=== PATIENT | female | born 1985 | race Caucasian/White ===

== ENCOUNTER 2019-02-18 12:40 | Emergency (ER) | payer OTHER ==
--- NOTE | 2019-02-18 13:04 | ER Document Report ---
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 Montaño continued into today. Has taken ASA earlier today TRAVEL OUTSIDE OF THE [place] IN LAST 30 DAYS: No - Related Data Allergies/Adverse Reactions: cefaclor [From Ceclor] Allergy (Verified 02/18/19 12:42) Physical Exam - Vital signs Vitals: Temp Pulse Resp BP Pulse Ox 98.2 F 51 L 18 108/67 98 02/18/19 12:58 02/18/19 12:58 02/18/19 12:58 02/18/19 12:58 02/18/19 12:58 Course - Vital Signs Vital signs: Temp Pulse Resp BP Pulse Ox 98.2 F 51 L 18 108/67 98 02/18/19 12:58 02/18/19 12:58 02/18/19 12:58 02/18/19 12:58 02/18/19 12:58
[2019-02-18 13:58] LABS: ABSOLUTE BASOPHILS # (AUTO) 0.1 10^3/uL (0.0-0.2); ABSOLUTE EOSINOPHILS # (AUTO) 0.3 10^3/uL (0.0-0.6); ABSOLUTE LYMPHOCYTES (AUTO) 1.3 10^3/uL (0.5-4.7); ABSOLUTE MONOCYTES (AUTO) 0.3 10^3/uL (0.1-1.4); BASOPHILS % (AUTO) 0.9 % (0-2); HEMATOCRIT 43.5 % (36.0-47.0); LYMPHOCYTES % (AUTO) 19.1 % (13-45); MEAN CORPUSCULAR HEMOGLOBIN 30.5 pg (27.0-33.4); MEAN CORPUSCULAR HGB CONC 34.5 g/dL (32.0-36.0); MEAN CORPUSCULAR VOLUME 89 fl (80-97); MONOCYTES % (AUTO) 4.1 % (3-13); PLATELET COUNT 202 10^3/uL (150-450); RED BLOOD COUNT 4.91 10^6/uL (3.72-5.28); RED CELL DISTRIBUTION WIDTH 13.3 % (11.5-14.0); SEGMENTED NEUTROPHILS % (AUTO) 71.9 % (42-78); TOTAL CELLS COUNTED % (AUTO) 100 %
--- NOTE | 2019-02-18 14:20 | RADIOLOGY REPORT (SQ) ---
EXAM DESCRIPTION: CHEST 2 VIEWS COMPLETED DATE/TIME: 02/18/2019 2:04 pm REASON FOR STUDY: cp COMPARISON: None. NUMBER OF VIEWS: One view. TECHNIQUE: Single frontal radiographic view of the chest acquired. LIMITATIONS: None. FINDINGS: LUNGS AND PLEURA: No opacities, masses or pneumothorax. No pleural effusion. MEDIASTINUM AND HILAR STRUCTURES: Clips right hilum. HEART AND VASCULAR STRUCTURES: Heart enlarged without failure. Normal vasculature. BONES: No acute findings. HARDWARE: Sternotomy. Prosthetic heart valves. OTHER: No other significant finding. IMPRESSION: Postoperative changes congenital heart disease. No acute findings. TECHNICAL DOCUMENTATION: JOB ID: [id number] [employer]- All Rights Reserved Reading location - IP/workstation name: [email or web address]
[2019-02-18 14:24] LABS: ALANINE AMINOTRANSFERASE 21 U/L (9-52); ALKALINE PHOSPHATASE 72 U/L (38-126); ANION GAP 12 (5-19); ASPARTATE AMINO TRANSFERASE 28 U/L (14-36); BILIRUBIN,DIRECT 0.3 mg/dL (0.0-0.4); BILIRUBIN,TOTAL 0.9 mg/dL (0.2-1.3); BLOOD UREA NITROGEN 11 mg/dL (7-20); CALCIUM 10.3 mg/dL (8.4-10.2); CARBON DIOXIDE 24 mmol/L (22-30); CHLORIDE 105 mmol/L (98-107); CREATINE KINASE 74 U/L (30-135); GLUCOSE 92 mg/dL (75-110); POTASSIUM 3.9 mmol/L (3.6-5.0); TOTAL PROTEIN 8.7 g/dL (6.3-8.2)
[2019-02-18 14:27] LABS: CREATINE KINASE MB 0.44 ng/mL (<4.55)
[2019-02-18 14:28] LABS: TROPONIN I < 0.012 ng/mL
--- NOTE | 2019-02-18 15:31 | ER Document Report ---
ED Cardiac - General Chief Complaint: Chest Pain Stated Complaint: CHEST PAIN Time Seen by Provider: 02/18/19 13:02 Primary Care Provider: CRISPIN ELLIOTT MD [ACTIVE STAFF] - Follow up as needed Mode of Arrival: Ambulatory Notes: 33-year-old female patient was here for evaluation of chest pain with intermittent palpitations. Patient states that she has had Ebstein anomaly as a child with open heart surgery. Had tricuspid and pulmonary valve replacement in 2016. 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 Denies any current chest pain but did have some chest pain at the time of the palpitations. Followed by Dr. Shyam Becerra at [facility]. TRAVEL OUTSIDE OF THE [place] 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 Montaño continued into today. 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 Renal/ Medical History: Denies: Hx Peritoneal Dialysis Review of Systems - Review of Systems Notes: Constitutional: denies: Chills, Diaphoresis, Fever, Malaise, Weakness EENT: denies: Eye discharge, Blurred vision, Tearing, Double vision, Nose congestion, Nose discharge, Throat swelling, Mouth pain Cardiovascular: denies: +Palpitations, +Heart racing, Orthopnea, Dyspnea, +Chest pain Respiratory: denies: Cough, Hurts to breathe, Wheezing, Shortness of breath Gastrointestinal: denies: Abdominal pain, Diarrhea, Nausea, Vomiting, Black stools, bright red blood in stool Genitourinary: denies: Burning, Dysuria, Discharge, Frequency, Flank pain, Hematuria Musculoskeletal: denies: Joint pain, Joint swelling, Muscle pain, Muscle stiffness, back pain Hematologic/Lymphatic: denies: Anemia, Easy bleeding, Easy bruising, Blood clots Neurological/Psychological: denies: Confusion, Dementia, Depression, Loss of consciousness Skin: No lesions, no masses, no skin breakdown, no abscesses Physical Exam - Vital signs Vitals: Temp Pulse Resp BP Pulse Ox 98.2 F 51 L 18 108/67 98 02/18/19 12:58 02/18/19 12:58 02/18/19 12:58 02/18/19 12:58 02/18/19 12:58 Interpretation: Normal - General General appearance: Appears well, Alert - HEENT Head: Normocephalic, Atraumatic Eyes: Normal Pupils: PERRL - Respiratory Respiratory status: No respiratory distress Chest status: Nontender Breath sounds: Normal Chest palpation: Normal - Cardiovascular Rhythm: Regular Heart sounds: Normal auscultation Murmur: No Notes: History of valvular repair sounds more like a click - Abdominal Inspection: Normal Distension: No distension Bowel sounds: Normal Tenderness: Nontender Organomegaly: No organomegaly - Back Back: Normal, Nontender - Extremities General upper extremity: Normal inspection, Nontender, Normal color, Normal ROM, Normal temperature General lower extremity: Normal inspection, Nontender, Normal color, Normal ROM, Normal temperature, Normal weight bearing. No: Irasema's sign - Neurological Neuro grossly intact: Yes Cognition: Normal Orientation: AAOx4 Michael Coma Scale Eye Opening: Spontaneous [place] Coma Scale Verbal: Oriented [place] Coma Scale Motor: Obeys Commands [place] Coma Scale Total: 15 Speech: Normal Motor strength normal: LUE, RUE, LLE, RLE Sensory: Normal - Psychological Associated symptoms: Normal affect, Normal mood - Skin Skin Temperature: Warm Skin Moisture: Dry Skin Color: Normal Course - Re-evaluation Re-evalutation: 02/18/19 17:29 Laboratory 02/18/19 02/18/19 02/18/19 13:40 13:40 13:40 WBC 7.0 RBC 4.91 Hgb 15.0 Hct 43.5 MCV 89 MCH 30.5 MCHC 34.5 RDW 13.3 Plt Count 202 Seg Neutrophils % 71.9 Lymphocytes % 19.1 Monocytes % 4.1 Eosinophils % 4.0 Basophils % 0.9 Absolute Neutrophils 5.0 Absolute Lymphocytes 1.3 Absolute Monocytes 0.3 Absolute Eosinophils 0.3 Absolute Basophils 0.1 Sodium 141.0 Potassium 3.9 Chloride 105 Carbon Dioxide 24 Anion Gap 12 BUN 11 Creatinine 0.68 Est GFR ( Amer) > 60 Est GFR (Non-Af Amer) > 60 Glucose 92 Calcium 10.3 H Total Bilirubin 0.9 Direct Bilirubin 0.3 Neonat Total Bilirubin Not Reportable Neonat Direct Bilirubin Not Reportable Neonat Indirect Bili Not Reportable AST 28 ALT 21 Alkaline Phosphatase 72 Creatine Kinase 74 CK-MB (CK-2) 0.44 Troponin I < 0.012 Total Protein 8.7 H Albumin 5.0 Chest X-Ray 02/18/19 13:02 IMPRESSION: Postoperative changes congenital heart disease. No acute findings. Labs are unremarkable. I did consult with patient's multifocal lens assembler Dr. Becerra. He recommends having patient follow-up back up with early multifocal lens assembler locally. Does not recommend any further treatment at this time. At this time I believe patient is stable for discharge. She was watched on the monitor for quite some time. No atrial abnormalities or tachycardia seen. 02/18/19 17:30 - Vital Signs Vital signs: Temp Pulse Resp BP Pulse Ox 98.2 F 51 L 18 108/67 98 02/18/19 12:58 02/18/19 12:58 02/18/19 12:58 02/18/19 12:58 02/18/19 12:58 - Laboratory Result Diagrams: 02/18/19 13:40 02/18/19 13:40 Laboratory results interpreted by me: 02/18/19 13:40 Calcium 10.3 H Total Protein 8.7 H - EKG Interpretation by N[place] EKG shows normal: Sinus rhythm, Otoe, Intervals, QRS Complexes, ST-T Waves Otoe/QRS: RBBB Discharge - Discharge Clinical Impression: Heart palpitations Chest pain Qualifiers: Chest pain type: unspecified Qualified Code(s): R07.9 - Chest pain, unspecified Condition: Good Disposition: HOME, SELF-CARE Instructions: Chest Pain of Unclear Cause ([facility]), Palpitations (Irregular or Rapid Heartrate) ([facility]) Additional Instructions: Please make appointment to follow-up with a multifocal lens assembler locally as they may be able to help coordinate your cardiac care in the future. In the event you develop any abnormal symptoms or worsening symptoms please feel free to return. Referrals: CRISPIN ELLIOTT MD [ACTIVE STAFF] - Follow up as needed
[2019-02-18 17:43] VITALS: BP 107/75
--- NOTE | 2019-02-18 20:56 | EKG REPORT ---
SEVERITY:- ABNORMAL ECG - SINUS RHYTHM RBBB AND LPFB : Confirmed by: Marie Beal MD 18-Feb-2019 20:55:04
== END 2019-02-18 17:47 | disposition home or self-care (01) ==
LOC: ER 12:40
DX: R07.9 Chest pain, unspecified (principal); R00.2 Palpitations; Z95.2 Presence of prosthetic heart valve; Z88.1 Allergy status to other antibiotic agents; Z87.798 Personal history of other (corrected) congenital malformations
CPT/HCPCS: 36415; 71046; 80053; 82550; 82553; 84484; 85025; 93005; 93010; 99285